=== PATIENT | female | born 1970 | race Caucasian/White ===

== ENCOUNTER 2019-04-23 06:36 | Day surgery (SDC) | payer OTHER, SELFPAY ==
[2019-04-23] MEDS ORDERED: Dextrose 5%-Lactated Ringers 1,000 ML IV SCH (07:15)
[2019-04-23] MEDS ORDERED: Glycopyrrolate 0.2 MG/ML 2 ML SDV IVPUSH ONE (07:15)
[2019-04-23] MEDS ORDERED: Propofol 200 MG/20 ML SDV ONE (07:56)
[2019-04-23] MEDS ORDERED: fentaNYL 100 MCG/2 ML SDV ONE (07:56)
[2019-04-23] MEDS ORDERED: Midazolam 1 MG/ML 2 ML SDV ONE (07:56)
[2019-04-23 09:56] VITALS: BP 126/89; PULSE 94
--- NOTE | 2019-04-29 13:53 | OR ---
DATE OF PROCEDURE: 04/23/2019 SURGEON: Parrish Rivas MD PREOPERATIVE DIAGNOSIS: Worsening gastroesophageal reflux disease. POSTOPERATIVE DIAGNOSES: 1. 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 2. Multiple gastric fundic polyps. 3. Patchy antral gastritis. OPERATIVE PROCEDURES: Esophagogastroduodenoscopy with: 1. Biopsy of esophagogastric junction. 2. Biopsies of antrum for CLOtest (16180). 3. Gastric polypectomy (54050). ANESTHESIA: IV sedation. INDICATIONS FOR PROCEDURE: This is a 48-year-old presenting with worsening gastroesophageal reflux disease. She presently is on omeprazole 20 mg a day and has had worsening symptoms of gastroesophageal reflux. Plan is to proceed with upper GI endoscopy with biopsies as indicated. Potential risks including bleeding and perforation were discussed, and the patient wishes to proceed. DETAILS OF PROCEDURE: The patient was taken to the operating room and placed in a left lateral decubitus position. IV sedation was administered, after which the upper GI endoscope was passed orally through the length of the esophagus into the stomach with retroflexion view of the fundus, and thereafter through the pyloric channel into the proximal duodenum. Findings included normal hypopharynx, larynx, upper esophageal sphincter, and esophageal body. At the EG junction, the patient was noted to have 2 to 3 cm hiatal hernia. There was mild inflammation at the esophagogastric junction with this area being edematous and friable. There was some upward extension of the gastroesophageal junction mucosal line consistent with possible Amezquita's esophagus, however, no stricturing was noted. Within the proximal stomach, the patient was noted to have multiple gastric fundic polyps consistent with longstanding PPI use. Within the antrum, there were some patchy reddened areas without erosions or ulcers, and the visualized portions of the pyloric channel and duodenum were unremarkable. At this point, biopsies were obtained from the antrum and sent for CLOtest for H pylori. Gastric fundic polyps were then excised by means of a snare technique for histologic confirmation, and then multiple biopsies were then obtained from esophagogastric junction and sent for histologic evaluation. Minimal bleeding from the biopsy site was seen and the procedure was concluded. The patient was taken to the recovery room in satisfactory condition. At this point, we will move the patient's omeprazole dose up to 40 mg a day, and we will see her back next week to discuss the long-term treatment options. Parrish Rivas MD /[id number]
== END 2019-04-23 10:20 | disposition home or self-care (01) ==
LOC: JP.SDS 06:36
PROVIDERS: ATTEND Surgery
DX: K21.0 Gastro-esophageal reflux disease with esophagitis (principal); K44.9 Diaphragmatic hernia without obstruction or gangrene; K31.7 Polyp of stomach and duodenum; K29.70 Gastritis, unspecified, without bleeding; K58.9 Irritable bowel syndrome, unspecified; E03.9 Hypothyroidism, unspecified; I10 Essential (primary) hypertension; E66.9 Obesity, unspecified; Z79.899 Other long term (current) drug therapy
CPT/HCPCS: 43239; 43251; 81025; 87081; J2250; J2704; J3010; J3490; J7121; 88305

== ENCOUNTER 2020-01-29 08:01 | Day surgery (SDC) | payer OTHER ==
[~2020-01-29 08:01] MED LIST: Bupivacaine 0.5% 30 ML SDV ONE; Bupivacaine 0.5% 50 ML MDV ONE
[2020-01-29] MEDS ORDERED: Nozin Nasal Sanitizer NASBOTH ONE (08:30)
[2020-01-29] MEDS ORDERED: Lactated Ringers 1,000 ML IV SCH (08:30)
[2020-01-29] MEDS ORDERED: ceFAZolin 2 GM in Premix Bag 1 BAG IV ONE (08:30)
[2020-01-29] MEDS ORDERED: Propofol 200 MG/20 ML SDV ONE (09:56)
[2020-01-29] MEDS ORDERED: Midazolam 1 MG/ML 2 ML SDV ONE (09:56)
[2020-01-29] MEDS ORDERED: fentaNYL 100 MCG/2 ML SDV ONE (09:56)
[2020-01-29 11:07] VITALS: PULSE 73
[2020-01-29 11:24] VITALS: BP 113/76
--- NOTE | 2020-01-31 18:05 | OR ---
DATE OF PROCEDURE: 01/29/2020 SURGEON: Yoan Cagle MD PREOPERATIVE DIAGNOSIS: Ganglion cyst, right index finger DIP joint. POSTOPERATIVE DIAGNOSIS: Ganglion cyst, index finger right DIP joint, dorsal. PROCEDURE: Excision of ganglion cyst, right index finger DIP joint. ANESTHESIA: Digital block with sedation. INDICATIONS: Shasta is a 49-year-old female with a history of a slowly enlarging cystic mass over the dorsum of the DIP joint of her index finger. It has been causing increasing difficulty with tenderness and use of the finger. She now presents for excision. Risks, benefits, potential complications of the procedure were discussed. She is aware of chance of recurrence. PROCEDURE: The right hand was prepped and draped in sterile fashion. Digital block was performed using 0.5% Marcaine. Tourniquet was placed at the base of the index finger using a [place] drain. A transverse incision was made over the mass incorporating the central portion which was very thin and scarred. Once this portion of the skin was incised, a release of synovial fluid occurred confirming a ganglion cyst. The central portion was removed in an elliptical fashion. This was carried down to the joint capsule. A portion of the joint capsule adjacent to the extensor tendon was excised. No significant osteophytes were present. No other abnormalities were identified. Once this was accomplished, the skin could be closed without difficulty. No excessive tension on the skin and no need for flap rotation or additional coverage. The skin was closed with 4-0 nylon in interrupted simple fashion. Incision was covered with Xeroform gauze, sterile gauze, and wrapped with a Woo bandage. The patient tolerated the procedure very well. There were no complications. Taken from the operating room in stable condition. Yoan Cagle MD /[id number]
== END 2020-01-29 11:28 | disposition home or self-care (01) ==
LOC: JP.SDS 08:01
PROVIDERS: ATTEND Specialist
DX: M67.441 Ganglion, right hand (principal); I10 Essential (primary) hypertension; K21.9 Gastro-esophageal reflux disease without esophagitis; E03.9 Hypothyroidism, unspecified; E66.01 Morbid (severe) obesity due to excess calories; Z68.43 Body mass index [BMI] 50.0-59.9, adult
CPT/HCPCS: 26160; 36415; 80048; 85027; 88304; A9270-GY; J0690; J2250; J2704; J3010; J3490; J7120

== ENCOUNTER 2022-10-21 10:53 | Emergency (ER) | payer OTHER ==
[2022-10-21] MEDS ORDERED: LORazepam 0.5 MG Tab PO ONE (11:57)
[2022-10-21 12:09] LABS: BASOPHILS PERCENT AUTO 0.5 % (0.1-1.3); EOSINOPHILS ABSOLUTE AUTO 0.11 K/uL (0.00-0.40); EOSINOPHILS PERCENT AUTO 2.5 % (0.0-5.4); HEMATOCRIT 43.5 % (34.3-46.0); HEMOGLOBIN 14.4 g/dL (11.2-15.5); IMMATURE GRAN PERCENT AUTO 0.2 % (0.0-0.7); LYMPHOCYTES ABSOLUTE AUTO 1.25 K/uL (0.8-3.3); LYMPHOCYTES PERCENT AUTO 28.3 % (11.4-47.7); MEAN CORPUSCULAR HEMOGLOBIN 28.3 pg (31.6-35.5); MEAN CORPUSCULAR HGB CONC 33.1 g/dL (31.6-35.5); MEAN CORPUSCULAR VOLUME 85.5 fL (81.4-99.0); MONOCYTES ABSOLUTE AUTO 0.37 K/uL (0.20-0.90); MONOCYTES PERCENT AUTO 8.4 % (3.3-12.6); NEUTROPHILS ABSOLUTE AUTO 2.65 K/uL (1.0-7.6); NEUTROPHILS PERCENT AUTO 60.1 % (40.0-78.1); PLATELET COUNT,PLT 231 K/uL (130-375); RED BLOOD CELL COUNT 5.09 M/uL (3.77-5.24); WHITE BLOOD CELL COUNT,WBC 4.4 K/uL (3.2-11.0)
[2022-10-21 12:17] LABS: BASOPHILS ABSOLUTE AUTO 0.02 K/uL (0.00-0.10); IMMATURE GRAN ABSOLUTE AUTO 0.01 K/uL (0.00-0.23)
[2022-10-21 12:40] LABS: ANION GAP 7.9 mmol/L (5.0-14.0); CALCIUM 9.2 mg/dL (8.5-10.1); EST CRCL DRUG DOSING (CG) 63.01 mL/min
[2022-10-21 13:57] VITALS: BP 133/76; PULSE 82
== END 2022-10-21 14:43 | disposition home or self-care (01) ==
LOC: JP.ED 10:53
DX: F41.9 Anxiety disorder, unspecified (principal); M62.838 Other muscle spasm; E03.9 Hypothyroidism, unspecified; I10 Essential (primary) hypertension; J45.909 Unspecified asthma, uncomplicated; K21.9 Gastro-esophageal reflux disease without esophagitis; Z91.048 Other nonmedicinal substance allergy status; Z88.8 Allergy status to other drugs, medicaments and biological substances; Z88.5 Allergy status to narcotic agent; Z79.899 Other long term (current) drug therapy
CPT/HCPCS: 36415; 71046; 71046-26; 80048; 84443; 84484; 85025; 99284; 99285; A9270-GY